=== PATIENT | male | born 1995 | race Caucasian/White ===

== ENCOUNTER 2021-07-06 17:44 | Emergency (ER) | payer OTHER ==
[~2021-07-06] VITALS: Ht 180.3 cm; Wt 95.5 kg
[2021-07-06] MEDS ORDERED: IBUPROFEN 800 MG TAB PO ONE (19:30)
[2021-07-06] MEDS ORDERED: LIDOCAINE 5% (LIDODERM) PATCH TD ONE (19:30)
[2021-07-06] MEDS ORDERED: **NOTE PATIENT COMMENT** MISC XX SCH (21:00)
--- NOTE | 2021-07-06 21:06 | REPVR ---
PROCEDURE INFORMATION: Exam: CT Lumbar Spine Without Contrast Exam date and time: 07/06/2021 7:37 PM Age: 26 years old Clinical indication: Low back pain; Additional info: Low back pain radiating to rle TECHNIQUE: Imaging protocol: Computed tomography images of the lumbar spine without contrast. Axial, coronal and sagittal reformatted images were created and reviewed. Radiation optimization: All CT scans at this facility use at least one of these dose optimization techniques: automated exposure control; mA and/or kV adjustment per patient size (includes targeted exams where dose is matched to clinical indication); or iterative reconstruction. COMPARISON: No relevant prior studies available. FINDINGS: Vertebrae: Normal lumbar lordosis. Alignment anatomic. No CT evidence of acute fracture, dislocation or subluxation. Vertebral body heights maintained. Discs/Spinal canal/Neural foramina: Intervertebral disc spaces preserved. No significant spinal canal or neural foraminal stenosis. Soft tissues: Grossly unremarkable. IMPRESSION: Grossly unremarkable examination. Electronically signed by: Efra Pedro On 07/06/2021 21:05:41 PM
[2021-07-06 21:52] VITALS: BP 142/79
== END 2021-07-06 21:53 | disposition home or self-care (01) ==
LOC: M ED 17:44
DX: S39.012A Strain of muscle, fascia and tendon of lower back, initial encounter (principal); M54.16 Radiculopathy, lumbar region; X50.0XXA Overexertion from strenuous movement or load, initial encounter; Y92.9 Unspecified place or not applicable; Y93.89 Activity, other specified; Y99.9 Unspecified external cause status; F17.290 Nicotine dependence, other tobacco product, uncomplicated

== ENCOUNTER 2021-08-20 08:40 | Day surgery (SDC) | payer OTHER ==
[~2021-08-20] VITALS: Ht 182.9 cm; Wt 99.2 kg
[~2021-08-20 08:40] MED LIST: LR 1,000 ML IV ONE
[2021-08-20] MEDS ORDERED: METHYLENE BLUE 0.5% (5MG/ML) 10 ML AMP (PROVAYBLUE) As Ordered ONE (09:05)
[2021-08-20] MEDS ORDERED: LIDOCAINE W/EPINEPHRINE 1% 20ML VIAL As Ordered ONE (09:05)
[2021-08-20] MEDS ORDERED: EPINEPHrine 1MG/ML INJ 30ML MD-VIAL As Ordered ONE (09:06)
[2021-08-20] MEDS ORDERED: ROCURONIUM BROMIDE 50 MG/5 ML VIAL As Ordered ONE (09:38)
[2021-08-20] MEDS ORDERED: HYDROmorphone HCL 2MG/ML 1ML VIAL As Ordered ONE (09:38)
[2021-08-20] MEDS ORDERED: SUGAMMADEX SODIUM 500 MG/5 ML VIAL (BRIDION) As Ordered ONE (09:38)
[2021-08-20] MEDS ORDERED: MIDAZOLAM INJ 2MG/2ML VIAL (J2250 PER 1MG) As Ordered ONE (09:38)
[2021-08-20] MEDS ORDERED: LIDOCAINE 2% 100MG/5ML SDV (FOR ANES.) As Ordered ONE (09:38)
[2021-08-20] MEDS ORDERED: fentaNYL 100 MCG/2 ML INJECTION As Ordered ONE (09:38)
[2021-08-20] MEDS ORDERED: propofoL 200 MG/20 ML VIAL As Ordered ONE (09:38)
[2021-08-20] MEDS ORDERED: dexameTHASONE 4 MG/ML 1ML VIAL (J1100 PER 1MG) As Ordered ONE (09:38)
[2021-08-20] MEDS ORDERED: ONDANSETRON 4MG/2ML VIAL As Ordered ONE (09:38)
[2021-08-20] MEDS ORDERED: LACRILUBE (AKWA TEARS) OPHTH OINT 3.5 GM As Ordered ONE (09:39)
[2021-08-20] MEDS: oxyCODONE 5MG TAB PO PRN ×2 (10:44→11:17)
[2021-08-20] MEDS ORDERED: fentaNYL 100 MCG/2 ML INJECTION IV PRN (10:45)
[2021-08-20] MEDS ORDERED: ACETAMINOPH W/CODEINE #3 TAB UD PO PRN (10:45)
[2021-08-20] MEDS ORDERED: ONDANSETRON 4MG/2ML VIAL IV PRN (10:45)
[2021-08-20] MEDS ORDERED: LR 1,000 ML IV SCH ×2 (10:45)
[2021-08-20] MEDS ORDERED: HYDROMORPHONE HCL 0.5 MG/ 0.5 ML SYRINGE (J1170 PER 1) IV PRN (10:45)
[2021-08-20 12:55] VITALS: BP 144/85
== END 2021-08-20 12:57 | disposition home or self-care (01) ==
LOC: M SDC 08:40
PROVIDERS: ATTEND Otolaryngology
DX: J34.2 Deviated nasal septum (principal); K21.9 Gastro-esophageal reflux disease without esophagitis; F17.290 Nicotine dependence, other tobacco product, uncomplicated
CPT/HCPCS: 30520; J1100; J1170; J2250; J2405; J3010; Q9968

== ENCOUNTER 2022-01-21 00:38 | Emergency (ER) | payer OTHER ==
[~2022-01-21] VITALS: Ht 182.9 cm; Wt 101.2 kg
[2022-01-21] MEDS ORDERED: BACTDSTA (00:48)
[2022-01-21] MEDS ORDERED: cefTRIAXone SOD 2 GM VIAL (J0696 PER 250MG) IM ONE (01:05)
[2022-01-21] MEDS ORDERED: ONDANSETRON 4MG ORAL DISINTEGRATING TAB PO ONE (01:05)
[2022-01-21] MEDS ORDERED: LIDOCAINE 1% SDV 5ML VIAL DILUENT ONE (01:05)
[2022-01-21] MEDS ORDERED: KETOROLAC 60MG 2ML VIAL IM ONE (01:05)
[2022-01-21 01:45] VITALS: BP 138/81
== END 2022-01-21 01:48 | disposition home or self-care (01) ==
LOC: M ED 00:38
DX: L03.311 Cellulitis of abdominal wall (principal)
CPT/HCPCS: 96372; 99283; J0696; J1885

== ENCOUNTER 2022-11-16 06:30 | Emergency (ER) | payer OTHER ==
[~2022-11-16] VITALS: Ht 182.9 cm; Wt 109.9 kg
[~2022-11-16 06:30] MED LIST changes: +BACTDSTA; -LR 1,000 ML IV ONE
[2022-11-16] MEDS ORDERED: DOXY100C3 PO (06:41)
[2022-11-16] MEDS ORDERED: IBUP80TA PO (06:42)
[2022-11-16] MEDS ORDERED: PANTOPRAZOLE 40MG VIAL IV ONE (06:50)
[2022-11-16] MEDS ORDERED: METOCLOPRAMIDE INJ 10MG/2ML VIAL IV ONE (06:50)
[2022-11-16] MEDS ORDERED: NS 1,000 ML IV ONE (06:50)
[2022-11-16] MEDS ORDERED: KETOROLAC 30 MG/ML 1ML VIAL IV ONE ×2 (07:00→08:20)
[2022-11-16 07:28] LABS: BASO % 0.5 % (0.0-1.0); EOS # 0.1 10^3/uL (0.0-0.5); EOS % 1.2 % (0.0-3.0); HEMATOCRIT 43.5 % (42.0-52.0); HEMOGLOBIN 14.4 g/dl (13.5-17.5); LYMPH # 0.9 10^3/uL (1.5-5.0); LYMPH % 11.6 % (24.0-44.0); MEAN CORPUSCULAR HEMOGLOBIN 29.1 pg (27.0-33.0); MEAN CORPUSCULAR HGB CONC 33.1 g/dl (32.0-36.5); MEAN CORPUSCULAR VOLUME 87.9 fl (80.0-96.0); MONO # 0.5 10^3/uL (0.0-0.8); NEUTROPHILS # 5.8 10^3/uL (1.5-8.5); NEUTROPHILS % 79.2 % (36.0-66.0); PLATELET COUNT, AUTOMATED 151 10^3/uL (150-450); RED BLOOD COUNT 4.95 10^6/uL (4.30-6.10); WHITE BLOOD COUNT 7.3 10^3/uL (4.0-10.0)
[2022-11-16 07:48] LABS: LIPASE 24 U/L (12-53)
[2022-11-16 07:50] LABS: ALBUMIN 3.8 G/DL (3.2-5.2); ALKALINE PHOSPHATASE 75 U/L (46-116); ALT/SGPT 81 U/L (7.0-40); AST/SGOT 38 U/L (<34); BILIRUBIN,DIRECT 0.2 MG/DL (<0.4); BILIRUBIN,TOTAL 0.8 MG/DL (0.3-1.2); BLOOD UREA NITROGEN 16 MG/DL (9-23); CALCIUM LEVEL 8.6 MG/DL (8.5-10.1); CARBON DIOXIDE LEVEL 25 MMOL/L (20-31); CHLORIDE LEVEL 105 MMOL/L (98-107); CREATININE FOR GFR 0.93 MG/DL (0.70-1.30); GLOMERULAR FILTRATION RATE > 60.0 (>60); GLUCOSE, FASTING 97 MG/DL (60-100); POTASSIUM SERUM 4.3 MMOL/L (3.5-5.1); SODIUM LEVEL 137 MMOL/L (136-145); TOTAL PROTEIN 6.9 G/DL (5.7-8.2)
[2022-11-16] MEDS ORDERED: ONDA4TAB6 PO (08:52)
[2022-11-16 08:59] VITALS: BP 118/57
== END 2022-11-16 09:03 | disposition home or self-care (01) ==
LOC: M ED 06:30
DX: R11.2 Nausea with vomiting, unspecified (principal); R42 Dizziness and giddiness; F17.290 Nicotine dependence, other tobacco product, uncomplicated
CPT/HCPCS: 80048; 80076; 83690; 85025; 87428; 96374; 96375; 96376; 99284; C9113; J1885; J2765